=== PATIENT | female | born 1955 | race Caucasian/White ===

== ENCOUNTER → 2022-03-15 | Outpatient (CLI) | payer MEDICARE ==
[2022-03-15 09:49] VITALS: BP 116/75; PULSE 101; RESP 17; TEMP 98.6
--- NOTE | 2022-03-15 10:12 | P.GSHP ---
History of Present Illness H&P Date: 03/15/22 Chief Complaint: right breast invasive ductal cancer Nelida is a 67 year old white female seen in consultation for Dr. Rasmussen . In a biopsy-proven right breast invasive ductal carcinoma. The patient had felt a lump in her breast for approximately a month prior to getting her mammogram. She then had a bilateral mammogram and [id number]. This revealed a lesion in the right breast and ultrasound was performed as well. The findings on the left breast were benign. In the right breast a 1.2 cm spiculated mass was identified. Ultrasound revealed this to be approximately 1.8 cm an ultrasound core biopsy was performed on [id number]. This revealed an invasive ductal car cinoma ER/VT positive HER-2/freddy equivocal. She does not feel any other lumps masses or nodules of concern in either breast. She has not had any surgery on her breast prior to this. Her last mammogram prior to this was approximately 5 years ago. Caffeine: occasional nicotine: none chocolate: none BCP: 20 years, sotpped about 20 years ago Family History: paternal cousin: pancreatic cancer Hormonal History: menarche: 12 [id number] first child born at 15, breast fed: no menopause: 50 hormones: none Surgery: Ganglion cyst left wrist Extra bone growing into clavicle removed when she was 6 Medical History: anxiety IBS Social History: Getting: Negative Alcohol: occasional drugs: Marijuana daily to calm patient - Constitutional Constitutional: Denies chills, Denies fever - EENT Eyes: denies blurred vision, denies pain Ears: deny: decreased hearing, tinnitus Ears, nose, mouth and throat: Denies headache, Denies sore throat - Breasts Breasts: bilateral: as per HPI - Cardiovascular Cardiovascular: Denies chest pain, Denies shortness of breath - Respiratory Respiratory: Denies cough, Denies 7 - Gastrointestinal Comment: IBS Gastrointestinal: Denies abdominal pain, Denies diarrhea, Denies nausea, Denies vomiting - Genitourinary (Female) Genitourinary: Denies dysuria, Denies hematuria - Menstruation Menstruation: Reports postmenopausal - Musculoskeletal Musculoskeletal: Denies myalgias - Integumentary Integumentary: Denies pruritus, Denies rash - Neurological Neurological: Denies numbness, Denies weakness - Psychiatric Psychiatric: Reports anxiety - Endocrine Endocrine: Denies fatigue, Denies weight change - Hematologic/Lymphatic Comment: none - Allergic/Immunologic Allergic/Immunologic: Reports as per HPI Past Medical History Additional Past Medical History / Comment(s): IBS History of Any Multi-Drug Resistant Organisms: None Reported Additional Past Surgical History / Comment(s): CYST REMOVAL L WRIST Past Anesthesia/Blood Transfusion Reactions: Motion Sickness Past Psychological History: No Psychological Hx Reported Smoking Status: Never smoker Past Alcohol Use History: Occasional Past Drug Use History: Marijuana Additional Drug Use History / Comment(s): DAILY MARIJUANA Medications and Allergies Home Medications Medication Instructions Recorded Confirmed Type LORazepam [Ativan] 0.5 mg PO DIRECTED PRN 03/15/22 03/15/22 History Meclizine [Antivert] 25 mg PO DIRECTED PRN 03/15/22 03/15/22 History Allergies Allergy/AdvReac Type Severity Reaction Status Date / Time No Known Allergies Allergy Unverified 03/15/22 09:42 Surgical - Exam Vital Signs Temp Pulse Resp BP Pulse Ox 98.6 F 101 H 17 116/75 98 03/15/22 09:45 03/15/22 09:45 03/15/22 09:45 03/15/22 09:45 03/15/22 09:45 - General moderate distress - Eyes normal ocular movement - Neck trachea midline - Respiratory normal respiratory effort - Cardiovascular Rhythm: regular Heart Sounds: normal: S1, S2 - Abdomen Abdomen: soft, non tender, no guarding, no rigid, no rebound - Integumentary normal turgor - Neurologic no disoriented, no combative - Musculoskeletal normal gait - Psychiatric oriented to time, oriented to person, oriented to place, speech is normal, memory intact Breast Exam: BRA: 36C inspection: Bilateral grade 2 ptosis Palpation: Right breast: Multiple positional exam increased nodularity upper outer quadrant area approximately 1.8 cm in size no other dominant masses or nodules of concern in the breast Right axilla: No adenopathy of concern left breast: Multiple positional exam fibrocystic changes no dominant masses or nodules of concern left axilla: No adenopathy of concern Results Mammogram reviewed in person with Dr. Saucedo Assessment and Plan Assessment: Impression: Stage I invasive ductal carcinoma right breast upper outer quadrant Irritable bowel syndrome Anxiety Plan: Presentation of case at tumor board Probable needle localization lumpectomy, optical plastic tissue transfer, sentinel node biopsy Risk and benefits of the procedures will be discussed with the patient and her as well as treatment options. Cc: Dr. Rasmussen
== END ==
LOC: WWCWWP 09:30
PROVIDERS: ATTEND Surgery
DX: C50.411 Malignant neoplasm of upper-outer quadrant of right female breast (principal); F41.9 Anxiety disorder, unspecified; K58.9 Irritable bowel syndrome, unspecified

== ENCOUNTER → 2022-04-18 | Outpatient (CLI) | payer MEDICARE ==
[2022-04-18 08:52] VITALS: BP 135/74; PULSE 89; RESP 16; TEMP 98.5
--- NOTE | 2022-04-18 09:17 | P.PN ---
Subjective Progress Note Date: 04/18/22 Principal diagnosis: right breast invasiv ductal cancer stage I; 03-27-22 The patient's case was presented at tumor board on [id number]. It was not felt that the patient needed any neoadjuvant treatment prior to surgical intervention. She wishes to have a lumpectomy with sentinel node biopsy done. Her HER2 status was reported as negative at tumor board but this will be confirmed. It was not felt that she was a candidate for genetic testing[place] [id number]; needle localization lumpectomy right breast, possible onco-plastic tissue transfer, sentinel node injection, sentinel node biopsy right side possible right axillary node dissection Preoperative clearance requested from Dr. Rasmussen Addendum entered and electronically signed by Cris Nguyen MD 03/15/22 10:44: As spent approximately 1 hour discussing treatment options with the patient and her . We discussed surgical options including lumpectomy versus mastectomy. We discussed the risks bleeding infection reaction to the anesthetic a possibility of positive margin requiring reexcision. We discussed sentinel node biopsy versus axillary node dissection. We discussed the risks bleeding infection reaction to the anesthetic possibility of positive nodes requiring further resection. We have also discussed possibility of injury to the thoracodorsal and long thoracic nerve with a winged scapula or decreased sensation to the inner arm. History of Present Illness H&P Date: 03/15/22 Chief Complaint: right breast invasive ductal cancer Nelida is a 67 year old white female seen in consultation for Dr. Rasmussen . She has a biopsy-proven right breast invasive ductal carcinoma. The patient had felt a lump in her breast for approximately a month prior to getting her mammogram. [place] [id number]. This revealed a lesion in the right breast and ultrasound was performed as well. The findings on the left breast were benign. In the right breast a 1.2 cm spiculated mass was identified. Ultrasound revealed this to be approximately 1.8 cm an ultrasound core biopsy was performed on [id number]. This revealed an invasive ductal carcinoma ER/NM positive HER-2/freddy equivocal. She does not feel any other lumps masses or nodules of concern in either breast. She has not had any surgery on her breast prior to this. Her last mammogram prior to this was approximately 5 years ago. Tumor board: No neoadjuvant treatment recommended; Surgical date 04-25-22; needle localization lumpectomy, possible radical plastic tissue transfer, sentinel node injection, sentinel node biopsy possible axillary node dissection Her2 freddy: (-) oncotype: 7 Caffeine: occasional nicotine: none chocolate: none BCP: 20 years, sotpped about 20 years ago Family History: paternal cousin: pancreatic cancer Hormonal History: menarche: 12 [id number] first child born at 15, breast fed: no menopause: 50 hormones: none Surgery: Ganglion cyst left wrist Extra bone growing into clavicle removed when she was 6 Medical History: anxiety IBS Social History: Getting: Negative Alcohol: occasional drugs: Marijuana daily to calm patient - Constitutional Constitutional: Denies chills, Denies fever - EENT Eyes: denies blurred vision, denies pain Ears: deny: decreased hearing, tinnitus Ears, nose, mouth and throat: Denies headache, Denies sore throat - Breasts Breasts: bilateral: as per HPI - Cardiovascular Cardiovascular: Denies chest pain, Denies shortness of breath - Respiratory Respiratory: Denies cough - Gastrointestinal Comment: IBS Gastrointestinal: Denies abdominal pain, Denies diarrhea, Denies nausea, Denies vomiting - Genitourinary (Female) Genitourinary: Denies dysuria, Denies hematuria - Menstruation Menstruation: Reports postmenopausal - Musculoskeletal Musculoskeletal: Denies myalgias - Integumentary Integumentary: Denies pruritus, Denies rash - Neurological Neurological: Denies numbness, Denies weakness - Psychiatric Psychiatric: Reports anxiety - Endocrine Endocrine: Denies fatigue, Denies weight change - Hematologic/Lymphatic Comment: none - Allergic/Immunologic Allergic/Immunologic: Reports as per HPI Past Medical History Additional Past Medical History / Comment(s): IBS History of Any Multi-Drug Resistant Organisms: None Reported Additional Past Surgical History / Comment(s): CYST REMOVAL L WRIST Past Anesthesia/Blood Transfusion Reactions: Motion Sickness Past Psychological History: No Psychological Hx Reported Smoking Status: Never smoker Past Alcohol Use History: Occasional Past Drug Use History: Marijuana Additional Drug Use History / Comment(s): DAILY MARIJUANA Medications and Allergies Home Medications Medication Instructions Recorded Confirmed Type LORazepam [Ativan] 0.5 mg PO DIRECTED PRN 03/15/22 03/15/22 History Meclizine [Antivert] 25 mg PO DIRECTED PRN 03/15/22 03/15/22 History Allergies Allergy/AdvReac Type Severity Reaction Status Date / Time No Known Allergies Allergy Unverified 03/15/22 09:42 Objective - Vital Signs Vital signs: Vital Signs Temp 98.5 F 04/18/22 08:47 Pulse 89 04/18/22 08:47 Resp 16 04/18/22 08:47 BP 135/74 04/18/22 08:47 Pulse Ox 99 04/18/22 08:47 FiO2 Intake & Output 04/17/22 04/18/22 04/18/22 18:59 06:59 18:59 Weight 64.864 kg - Constitutional General appearance: Present: cooperative - EENT Eyes: Present: EOMI ENT: Present: hearing grossly normal - Neck Neck: Present: normal ROM - Respiratory Respiratory: bilateral: CTA - Cardiovascular Rhythm: regular Heart sounds: normal: S1, S2 - Gastrointestinal General gastrointestinal: Present: soft - Integumentary Integumentary: Present: normal turgor - Musculoskeletal Musculoskeletal: Present: gait normal - Psychiatric Psychiatric: Present: A&O x's 3, appropriate affect, intact judgment & insight - Additional findings Additional findings: Breast Examination: BRA: 36C Inspection: Grade 2 ptosis Palpation: Right breast: Multiple positional exam increased nodularity upper quadrant approximately 1.8 cm in size no other dominant masses or nodules of concern Right axilla: No adenopathy of concern Left breast: Multi-positional exam fibrocystic changes no dominant masses or nodules of concern Left axilla: No adenopathy of concern Assessment and Plan Assessment: Impression: Stage I invasive ductal carcinoma right breast upper outer quadrant Irritable bowel syndrome Anxiety Plan: Needle localization right breast lumpectomy possible right breast Onoc-plastic tissue transfer [place] node injection right Right sentinel node biopsy, possible right axillary node dissection preop clearance Dr. Rasmussen Risk and benefits of the procedures were discussed with the patient as well as treatment options. The understood risks include but are not limited to bleeding, infection, reaction to the anesthetic, patient wishes to proceed. The risk of the sentinel sentinel node biopsy include but are not limited to bleeding infection reaction to the anesthetic, possible lymphedema, possible num bness to the inner arm, possible injury to the thoracodorsal or long thoracic nerves resulting in wing scapula. The patient and her understand and wish to proceed. CC: Dr. Monse Rasmussen
== END ==
LOC: WWCWWP 08:34
PROVIDERS: ATTEND Surgery
DX: C50.411 Malignant neoplasm of upper-outer quadrant of right female breast (principal); F41.9 Anxiety disorder, unspecified; K58.9 Irritable bowel syndrome, unspecified; Z80.0 Family history of malignant neoplasm of digestive organs

== ENCOUNTER 2022-04-25 07:43 | Day surgery (SDC) | payer MEDICARE ==
[~2022-04-25 07:43] MED LIST: HEPARIN SODIUM,PORCINE/PF 5,000 UNIT/0.5 ML SYRINGE SQ PRN; Pre Op ABX Message 1 EACH MISC MISCELLANE ONE
[2022-04-25] MEDS ORDERED: HYDROmorphone 0.5 MG/0.5 ML SYRINGE IVP PRN (07:58)
[2022-04-25] MEDS ORDERED: LIDOCAINE 1% (10MG/ML) FOR IV START INTRADERMA PRN (07:58)
[2022-04-25] MEDS ORDERED: ONDANSETRON 4 MG/2 ML VIAL IVP ONE (07:58)
[2022-04-25] MEDS ORDERED: LACTATED RINGERS 1,000 ML IV SCH (07:58)
[2022-04-25] MEDS ORDERED: DEXAMETHASONE SOD PHOSPHATE 4 MG/ML 1 ML VIAL IV ONE (07:58)
[2022-04-25] MEDS ORDERED: ALPRAZolam 0.25 MG TAB ONE (09:07)
[2022-04-25] MEDS ORDERED: ALPRAZolam 0.25 MG TAB PO ONE (09:24)
[2022-04-25] MEDS ORDERED: LIDOCAINE 1% INJ 10MG/ML (5 ML VIAL-PF) SQ ONE (09:54)
--- NOTE | 2022-04-25 10:36 | NM ---
EXAMINATION TYPE: NM sentinel node injection DATE OF EXAM: 04/25/2022 COMPARISON: 03/01/2022 HISTORY: 67-year-old female C5 0.411, referred for needle localization for excision of biopsy-proven right breast cancer. TECHNIQUE AND FINDINGS: The procedure of sentinel lymph node injection was explained to the patient. The benefits, alternatives, and risks were discussed. An informed consent was then obtained. Overlying skin is cleaned with sterile alcohol. Following this, 493 uCi Tc99m Tilmanocept was inject ed in the upper outer aspect of the right nipple intradermally. The patient tolerated the procedure well without any immediate complication. The patient was kept in the radiology department for short stay after the procedure and then taken to surgery for surgical p rocedure what is presumed intraoperative gamma probe will be used for sentinel lymph node detection. IMPRESSION: Right breast radiotracer injection for sentinel node localization as above.
--- NOTE | 2022-04-25 11:37 | P.NAPBC ---
NAPBC Queries - NAPBC Queries Was patient's case review presented at [facility] tumor board? If no, comment.: Yes Was patient's pathology reviewed at [facility]? If no, comment.: Yes Was breast conservation surgery offered? If no, comment.: Yes Was sentinel node biopsy offered? If no, comment.: Yes Was diagnosis confirmed by percutaneous core biopsy? If no, comment.: Yes Is patient mastectomy patient?: No Was a preop referral to reconstructive surgeon offered?: No Clinical Stage: stage I right breast invasive ductal cancer; [id number]+Pr+Her2-
[2022-04-25] MEDS ORDERED: SUCCINYLCHOLINE CHLORIDE 200 MG/10 ML VIAL IV ONE (12:05)
[2022-04-25] MEDS ORDERED: LIDOCAINE 2% INJ 20 MG/ML (2 ML VIAL) ONE (12:05)
[2022-04-25] MEDS ORDERED: MIDAZOLAM 2 MG/2 ML VIAL ONE (12:05)
[2022-04-25] MEDS ORDERED: fentaNYL (PF) 50 MCG/ML 2 ML AMP ONE (12:05)
[2022-04-25] MEDS ORDERED: LIDOCAINE 4% LTA KIT (4 ML) TOPICAL ONE (12:05)
[2022-04-25] MEDS ORDERED: PROPOFOL 10 MG/ML 20 ML VIAL IV ONE (12:05)
[2022-04-25] MEDS ORDERED: SODIUM CHLORIDE 0.9% 50 ML with ceFAZolin 2 GM IV ONE ×2 (12:10)
--- NOTE | 2022-04-25 13:30 | P.OP ---
Date of Procedure: 04/25/22 Preoperative Diagnosis: Right breast invasive ductal carcinoma stage I Postoperative Diagnosis: Same Procedure(s) Performed: Right sentinel node biopsy, right needle localization lumpectomy, onco-plastic tissue transfer 35 cm Anesthesia: REMEDIOS Surgeon: Cris Nguyen Estimated Blood Loss (ml): 10 IV fluids (ml): 600 Pathology: other ([place] lymph node, breast tissue) Condition: stable Disposition: same day Indications for Procedure: Biopsy-proven right breast invasive ductal carcinoma Operative Findings: Palpable mass right breast Description of Procedure: The patient was first taken to the radiology suite where needle localization of the area of concern was performed. Injection of radiotracer was placed in the periareolar area. The patient was then brought to the operative suite. Following induction of anesthesia the Maru counter was used to interrogate the axilla. The area of radioactivity in the axilla was identified. The patient was then prepped and draped in the right breast and axilla in a sterile fashion. The axilla was approached initially. Using the neoprobe the area of greatest radioactivity was identified. An incision was made and carried down to the radioactive lymph node. Wide excision was performed. A 10 second count on the lymph node was 9000 and 141. The patient had a second area of increased radioactivity in the 10 second count was 146. A background count of 10 seconds was 34. After assured that hemostasis was attained the deep tissues were closed using 3-0 Vicryl suture. The skin was closed using 4-0 Monocryl. The area in the breast was then approached. An incision was made and carried down to the needle. The dissection was immediately under the skin. It was carried circumferentially around the area of the needle onto the pectoralis muscle. The specimen cavity was 5 x 4 cm, superior pillar of 3 x 2 cm was created and inferior pillar 3 x 5 cm was created. Total tissue transfer was 35 cm. The specimen was removed and painted for orientation. Radiograph revealed the area of concern had been removed. The pillars were brought together using 3-0 Vicryl suture after the cavity had been well examined for hemostasis. Titan ium clips were placed in the cavity. This was closed using 4-0 Monocryl. 10 mL of 1% lidocaine were injected into the incision. The patient tolerated the procedure in stable condition. All instrument and sponge counts were correct at the end of the case.
[2022-04-25 13:50] VITALS: TEMP 96.9
[2022-04-25 14:25] VITALS: RESP 16
[2022-04-25 14:51] VITALS: BP 164/63; PULSE 70
== END 2022-04-25 15:22 | disposition home or self-care (01) ==
LOC: OR 07:43
PROVIDERS: ATTEND Surgery
DX: C50.911 Malignant neoplasm of unspecified site of right female breast (principal); F41.9 Anxiety disorder, unspecified; Z87.19 Personal history of other diseases of the digestive system; Z79.1 Long term (current) use of non-steroidal anti-inflammatories (NSAID); Z79.899 Other long term (current) drug therapy; F12.20 Cannabis dependence, uncomplicated; Z80.42 Family history of malignant neoplasm of prostate; Z78.0 Asymptomatic menopausal state; Z79.52 Long term (current) use of systemic steroids; F10.20 Alcohol dependence, uncomplicated
CPT/HCPCS: 97110; 97535; 97161; 76098; 19281; 38792; 38525; 14001; C1819; A9520; J2250; J0330; J1100; J0690; J2405; J2001 ×2; J3010; J2704; J1790; J1644; 88307; 88341; 88342

== ENCOUNTER → 2022-05-03 | Outpatient (CLI) | payer MEDICARE ==
[2022-05-03 10:21] VITALS: BP 147/69; PULSE 118; RESP 16; TEMP 98.1
--- NOTE | 2022-05-03 10:24 | P.PN ---
Progress Note - Text Progress Note Date: 05/03/22 Nelida is a 67 year old white female statua post right breast lumpectomy and SNB on 04-25-22. Her pathology revealed the margins to be negative, and eight nodes to be negative. Physical examination: Incision rest and axilla clean and dry Lungs: Clear Heart: Regular rate and rhythm Impression: Patient status post right breast lumpectomy and sentinel node biopsy with negative margins and node negative doing well Plan: Follow-up medical oncology Follow-up radiation oncology Follow-up care in 4 months CC: Dr. Rasmussen
== END ==
LOC: WWCWWP 10:07
PROVIDERS: ATTEND Surgery
DX: Z85.3 Personal history of malignant neoplasm of breast (principal)

== ENCOUNTER → 2022-09-05 | Outpatient (CLI) | payer MEDICARE ==
[2022-09-05 12:41] VITALS: BP 146/75; PULSE 98; RESP 18; TEMP 97.6
--- NOTE | 2022-09-05 12:57 | P.PN ---
Subjective Progress Note Date: 09/05/22 Principal diagnosis: stage IA right breast invasive ductal cancer, 03-15-2022 History of Present Illness Chief Complaint: right breast invasive ductal cancer Nelida is a 67 year old white female seen in consultation for Dr. Rasmussen . She has a biopsy-proven right breast invasive ductal carcinoma. The patient had felt a lump in her breast for approximately a month prior to getting her mammogram. [place] [id number]. This revealed a lesion in the right breast and ultrasound was performed as well. The findings on the left breast were benign. In the right breast a 1.2 cm spiculated mass was identified. Ultrasound revealed this to be approximately 1.8 cm an ultrasound core biopsy was performed on [id number]. This revealed an invasive ductal carcinoma ER/OK positive HER-2/freddy equivocal. She does not feel any other lumps masses or nodules of concern in either breast. She has not had any surgery on her breast prior to this. Her last mammogram prior to this was approximately 5 years ago. Tumor board: No neoadjuvant treatment recommended; Surgical date 04-25-22; needle localization lumpectomy, possible onco-plastic tissue transfer, sentinel node injection, sentinel node biopsy possible axillary node dissection Her2 freddy: (-) oncotype: 7 She is status post on 04-25-22 right breast lumpectomy, all margins (-) and 8 nodes removed all (-). Note Radiation oncology 08-02-22 reviewed She completed radiation therapy 07-03-22 note medical oncology 09-02-22 reviewed; patient recommended to take hormone therapy, she is going to decide At this time she is not complaining of any new lumps masses or notches of concern in either breast. Caffeine: occasional nicotine: none chocolate: none BCP: 20 years, sotpped about 20 years ago Family History: paternal cousin: pancreatic cancer Hormonal History: menarche: 12 [id number] first child born at 15, breast fed: no menopause: 50 hormones: none Surgery: Ganglion cyst left wrist Extra bone growing into clavicle removed when she was 6 Medical History: anxiety IBS Social History: Getting: Negative Alcohol: occasional drugs: Marijuana daily to calm patient - Constitutional Constitutional: Denies chills, Denies fever - EENT Eyes: denies blurred vision, denies pain Ears: deny: decreased hearing, tinnitus Ears, nose, mouth and throat: Denies headache, Denies sore throat - Breasts Breasts: bilateral: as per HPI - Cardiovascular Cardiovascular: Denies chest pain, Denies shortness of breath - Respiratory Respiratory: Denies cough - Gastrointestinal Comment: IBS Gastrointestinal: Denies abdominal pain, Denies diarrhea, Denies nausea, Denies vomiting - Genitourinary (Female) Genitourinary: Denies dysuria, Denies hematuria - Menstruation Menstruation: Reports postmenopausal - Musculoskeletal Musculoskeletal: Denies myalgias - Integumentary Integumentary: Denies pruritus, Denies rash - Neurological Neurological: Denies numbness, Denies weakness - Psychiatric Psychiatric: Reports anxiety - Endocrine Endocrine: Denies fatigue, Denies weight change - Hematologic/Lymphatic Comment: none - Allergic/Immunologic Allergic/Immunologic: Reports as per HPI Past Medical History Additional Past Medical History / Comment(s): IBS History of Any Multi-Drug Resistant Organisms: None Reported Additional Past Surgical History / Comment(s): CYST REMOVAL L WRIST Past Anesthesia/Blood Transfusion Reactions: Motion Sickness Past Psychological History: No Psychological Hx Reported Smoking Status: Never smoker Past Alcohol Use History: Occasional Past Drug Use History: Marijuana Additional Drug Use History / Comment(s): DAILY MARIJUANA Medications and Allergies Home Medications Medication Instructions Recorded Confirmed Type LORazepam [Ativan] 0.5 mg PO DIRECTED PRN 03/15/22 03/15/22 History Meclizine [Antivert] 25 mg PO DIRECTED PRN 03/15/22 03/15/22 History Allergies Allergy/AdvReac Type Severity Reaction Status Date / Time No Known Allergies Allergy Unverified 03/15/22 09:42 Objective - Vital Signs Vital signs: Vital Signs Temp 97.6 F 09/05/22 12:39 Pulse 98 09/05/22 12:39 Resp 18 09/05/22 12:39 BP 146/75 09/05/22 12:39 Pulse Ox 98 09/05/22 12:39 FiO2 Intake & Output 09/04/22 09/05/22 09/05/22 18:59 06:59 18:59 Weight 63.957 kg - Constitutional General appearance: Present: cooperative - EENT ENT: Present: hearing grossly normal - Neck Neck: Present: normal ROM - Respiratory Respiratory: bilateral: CTA - Cardiovascular Rhythm: regular Heart sounds: normal: S1, S2 - Gastrointestinal General gastrointestinal: Present: soft - Integumentary Integumentary: Present: normal turgor - Musculoskeletal Musculoskeletal: Present: gait normal - Psychiatric Psychiatric: Present: A&O x's 3, appropriate affect, intact judgment & insight - Additional findings Additional findings: Breast Examination: BRA: 36C Inspection: Grade 2 ptosis Palpation: Right breast: Multiple positional exam increased nodularity upper quadrant approximately 1.8 cm in size no other dominant masses or nodules of concern Right axilla: No adenopathy of concern Left breast: Multi-positional exam fibrocystic changes no dominant masses or nodules of concern Left axilla: No adenopathy of concern Assessment and Plan Assessment: Impression: anxiety IBS Right breast invasive ductal carcinoma/status post lumpectomy Right breast mammogram for February Plan: Follow up in 4 months Continue follow-up with radiation oncology Follow-up medical oncology bilateral mammogram in February Cc: Dr. Monse Rasmussen
== END ==
LOC: WWCWWP 12:25
PROVIDERS: ATTEND Surgery
DX: C50.911 Malignant neoplasm of unspecified site of right female breast (principal); F41.9 Anxiety disorder, unspecified; K58.9 Irritable bowel syndrome, unspecified; Z17.0 Estrogen receptor positive status [ER+]; Z92.3 Personal history of irradiation

== ENCOUNTER → 2023-02-21 | Outpatient (CLI) | payer MEDICARE ==
--- NOTE | 2023-02-21 13:11 | MM ---
Reason for Exam: Follow-up at short interval from prior study. Last screening mammogram was performed 12 month(s) ago. Patient History: Menarche at age 12. First Full-Term at age 15. Postmenopausal. Breast cancer, right, age 67. 04/25/2022, Lumpectomy on the Right side. 04/25/2022, Malignant MG pre op needle loc RT on the right side. Prior Study Comparison: 02/20/2022 Bilateral Diagnostic Mammogram, Unknown. Tissue Density: The breast tissue is heterogeneously dense. This may lower the sensitivity of mammography. Findings: Analyzed By CAD. No new suspicious mass within either breast. Postsurgical and posttreatment changes of the right breast with surgical clips identified and skin thickening. Benign calcifications within both breasts. No suspicious group of calcifications within either breast. Overall Assessment: Benign, BI-RAD 2 Management: Diagnostic Mammogram of both breasts in 1 year. A clinical breast exam by your physician is recommended on an annual basis and results should be correlated with mammographic findings. This exam should not preclude additional follow-up of suspicious palpable abnormalities. Results were given to the patient verbally at the time of exam. Electronically signed and approved by: Jorge De D.O.
--- NOTE | 2023-02-21 14:31 | P.PN ---
Subjective Progress Note Date: 02/21/23 Principal diagnosis: right breast invasive ductal cancer stage IA stage IA right breast invasive ductal cancer, 03-15-2022 History of Present Illness Chief Complaint: right breast invasive ductal cancer Nelida is a 67 year old white female seen in consultation for Dr. Rasmussen . She has a biopsy-proven right breast invasive ductal carcinoma. The patient had felt a lump in her breast for approximately a month prior to getting her ma mmogram. [place] [address]. This revealed a lesion in the right breast and ultrasound was performed as well. The findings on the left breast were benign. In the right breast a 1.2 cm spiculated mass was identified. Ultrasound revealed this to be approximately 1.8 cm an ultrasound core biopsy was performed on [id number]. This revealed an invasive ductal carcinoma ER/KS positive HER-2/freddy equivocal. She does not feel any other lumps masses or nodules of concern in either breast. She has not had any surgery on her breast prior to this. Her last mammogram prior to this was approximately 5 years ago. Tumor board: No neoadjuvant treatment recommended; Surgical date 04-25-22; needle localization lumpectomy, possible onco-plastic tissue transfer, sentinel node in jection, sentinel node biopsy possible axillary node dissection Her2 freddy: (-) oncotype: 7 She is status post on 04-25-22 right breast lumpectomy, all margins (-) and 8 nodes removed all (-). Note Radiation oncology 08-02-22 reviewed She completed radiation therapy 07-03-22 note medical oncology 09-02-22 reviewed; patient recommended to take hormone therapy, she is going to decide At this time she is not complaining of any new lumps masses or nodules of concern in either breast. 02-21-23 bilateral mammogram 02-21-23 BIRAD 2 She is status post right breast lumpectomy on all margins were negative, and 8 lymph nodes removed all negative Tumor size was 1.4 cm, ER/KS positive HER-2/freddy equivocal Completed radiation therapy She is not complaining of any new lumps past or nodules of concern in either breast Caffeine: occasional nicotine: none chocolate: none BCP: 20 years, sotpped about 20 years ago Family History: paternal cousin: pancreatic cancer Hormonal History: menarche: 12 [id number] first child born at 15, breast fed: no menopause: 50 hormones: none Surgery: Ganglion cyst left wrist Extra bone growing into clavicle removed when she was 6 Right breast lumpectomy and sentinel node biopsy Medical History: anxiety IBS Social History: Getting: Negative Alcohol: occasional drugs: Marijuana daily to calm patient - Constitutional Constitutional: Denies chills, Denies fever - EENT Eyes: denies blurred vision, denies pain Ears: deny: decreased hearing, tinnitus Ears, nose, mouth and throat: Denies headache, Denies sore throat - Breasts Breasts: bilateral: as per HPI - Cardiovascular Cardiovascular: Denies chest pain, Denies shortness of breath - Respiratory Respiratory: Denies cough - Gastrointestinal Comment: IBS Gastrointestinal: Denies abdominal pain, Denies diarrhea, Denies nausea, Denies vomiting - Genitourinary (Female) Genitourinary: Denies dysuria, Denies hematuria - Menstruation Menstruation: Reports postmenopausal - Musculoskeletal Musculoskeletal: Denies myalgias - Integumentary Integumentary: Denies pruritus, Denies rash - Neurological Neurological: Denies numbness, Denies weakness - Psychiatric Psychiatric: Reports anxiety - Endocrine Endocrine: Denies fatigue, Denies weight change - Hematologic/Lymphatic Comment: none - Allergic/Immunologic Allergic/Immunologic: Reports as per HPI Past Medical History Additional Past Medical History / Comment(s): IBS History of Any Multi-Drug Resistant Organisms: None Reported Additional Past Surgical History / Comment(s): CYST REMOVAL L WRIST Past Anesthesia/Blood Transfusion Reactions: Motion Sickness Past Psychological History: No Psychological Hx Reported Smoking Status: Never smoker Past Alcohol Use History: Occasional Past Drug Use History: Marijuana Additional Drug Use History / Comment(s): DAILY MARIJUANA Medications and Allergies Home Medications Medication Instructions Recorded Confirmed Type LORazepam [Ativan] 0.5 mg PO DIRECTED PRN 03/15/22 03/15/22 History Meclizine [Antivert] 25 mg PO DIRECTED PRN 03/15/22 03/15/22 History Allergies Allergy/AdvReac Type Severity Reaction Status Date / Time No Known Allergies Allergy Unverified 03/15/22 09:42 Objective - Constitutional General appearance: Present: cooperative - EENT Eyes: Present: EOMI ENT: Present: hearing grossly normal - Neck Neck: Present: normal ROM - Respiratory Respiratory: bilateral: CTA - Cardiovascular Rhythm: regular Heart sounds: normal: S1, S2 - Integumentary Integumentary: Present: normal turgor - Musculoskeletal Musculoskeletal: Present: gait normal - Psychiatric Psychiatric: Present: A&O x's 3, appropriate affect, intact judgment & insight - Additional findings Additional findings: Breast Examination: BRA: 36C Inspection: Grade 2 ptosis Palpation: Right breast: Multiple positional examination scar tissue and radiation changes upper outer quadrant area no other dominant masses or nodules of concern Right axilla: No adenopathy of concern Left breast: Multi-positional exam fibrocystic changes no dominant masses or nodules of concern Left axilla: No adenopathy of concern Assessment and Plan Assessment: Impression: anxiety IBS Right breast invasive ductal carcinoma/status post lumpectomy Right breast mammogram for 02-21-23 BIRAD 2 Plan: Follow up in 4 months Continue follow-up with radiation oncology Follow-up medical oncology bilateral mammogram in February,02-21-23 BIRAD 2; repeat one year Cc: Dr. Monse Rasmussen
== END | disposition home or self-care (01) ==
LOC: RADMAMWWP 12:38
PROVIDERS: ATTEND Surgery
DX: R92.333 Mammographic heterogeneous density, bilateral breasts (principal); Z85.3 Personal history of malignant neoplasm of breast; Z78.0 Asymptomatic menopausal state
CPT/HCPCS: 77066; G0279; 77062

== ENCOUNTER → 2023-02-21 | Outpatient (CLI) | payer MEDICARE ==
[2023-02-21 14:04] VITALS: BP 147/76; PULSE 100; RESP 18; TEMP 97.8
== END ==
LOC: WWCWWP 12:40
PROVIDERS: ATTEND Surgery
DX: Z53.9 Procedure and treatment not carried out, unspecified reason (principal)

== ENCOUNTER → 2023-07-18 | Outpatient (CLI) | payer MEDICARE ==
--- NOTE | 2023-07-18 14:52 | P.PN ---
Subjective Progress Note Date: 07/18/23 02/21/23 Principal diagnosis: right breast invasive ductal cancer stage IA [id number]- stage IA right breast invasive ductal cancer, 03-15-2022 History of Present Illness Chief Complaint: right breast invasive ductal cancer Nelida is a 67 year old white female seen in consultation for Dr. Rasmussen . She has a biopsy-proven right breast invasive ductal carcinoma. The patient had felt a lump in her breast for approximately a month prior to getting her mammogram. She then had a bilateral mammogram on . This revealed a lesion in the right breast and ultrasound was performed as well. The findings on the left breast were benign. In the right breast a 1.2 cm spiculated mass was identified. Ultrasound revealed this to be approximately 1.8 cm an ultrasound core biopsy was performed on [id number]. This revealed an invasive ductal carcinoma ER/MO positive HER-2/freddy equivocal. She does not feel any other lumps masses or nodules of concern in either breast. She has not had any surgery on her breast prior to this. Her last mammogram prior to this was approximately 5 years ago. Tumor board: No neoadjuvant treatment recommended; Surgical date 04-25-22; needle localization lumpectomy, possible onco-plastic tissue transfer, sentinel node injection, sentinel node biopsy possible axillary node dissection Her2 freddy: (-) oncotype: 7 She is status post on 04-25-22 right breast lumpectomy, all margins (-) and 8 nodes removed all (-). Note Radiation oncology 08-02-22 reviewed She completed radiation therapy 07-03-22 note medical oncology 09-02-22 reviewed; patient recommended to take hormone therapy, she is going to decide At this time she is not complaining of any new lumps masses or nodules of concern in either breast. 02-21-23 bilateral mammogram 02-21-23 BIRAD 2 She is status post right breast lumpectomy on all margins were negative, and 8 lymph nodes removed all negative Tumor size was 1.4 cm, ER/MO positive HER-2/freddy equivocal Completed radiation therapy She is not complaining of any new lumps past or nodules of concern in either breast 07-18-23 Status post on 04-25-22 right breast lumpectomy all margins (-), and 8 nodes removed all (-). She completed radiation therapy 07-03-22 oncotype 7 note medical oncology 09-02-22 reviewed; patient recommended to take hormone therapy, she is going to decide she chose not to take this At this time she is not complaining of any new lumps masses or nodules of concern in either breast. She did have some swelling of her right arm and was seen by PT and that improved bilatearal mammogram 02-21-23 BIRAD 2 note radiation oncology 03-05-23 reviewed Caffeine: occasional nicotine: none chocolate: none BCP: 20 years, sotpped about 20 years ago Family History: paternal cousin: pancreatic cancer Hormonal History: menarche: 12 [id number] first child born at 15, breast fed: no menopause: 50 hormones: none Surgery: Ganglion cyst left wrist Extra bone growing into clavicle removed when she was 6 Right breast lumpectomy and sentinel node biopsy Medical History: anxiety IBS Social History: Getting: Negative Alcohol: occasional drugs: Marijuana daily to calm patient - Constitutional Constitutional: Denies chills, Denies fever - EENT Eyes: denies blurred vision, denies pain Ears: deny: decreased hearing, tinnitus Ears, nose, mouth and throat: Denies headache, Denies sore throat - Breasts Breasts: bilateral: as per HPI - Cardiovascular Cardiovascular: Denies chest pain, Denies shortness of breath - Respiratory Respiratory: Denies cough - Gastrointestinal Comment: IBS Gastrointestinal: Denies abdominal pain, Denies diarrhea, Denies nausea, Denies vomiting - Genitourinary (Female) Genitourinary: Denies dysuria, Denies hematuria - Menstruation Menstruation: Reports postmenopausal - Musculoskeletal Musculoskeletal: Denies myalgias - Integumentary Integumentary: Denies pruritus, Denies rash - Neurological Neurological: Denies numbness, Denies weakness - Psychiatric Psychiatric: Reports anxiety - Endocrine Endocrine: Denies fatigue, Denies weight change - Hematologic/Lymphatic Comment: none - Allergic/Immunologic Allergic/Immunologic: Reports as per HPI Past Medical History Additional Past Medical History / Comment(s): IBS History of Any Multi-Drug Resistant Organisms: None Reported Additional Past Surgical History / Comment(s): CYST REMOVAL L WRIST Past Anesthesia/Blood Transfusion Reactions: Motion Sickness Past Psychological History: No Psychological Hx Reported Smoking Status: Never smoker Past Alcohol Use History: Occasional Past Drug Use History: Marijuana Additional Drug Use History / Comment(s): DAILY MARIJUANA Medications and Allergies Home Medications Medication Instructions Recorded Confirmed Type LORazepam [Ativan] 0.5 mg PO DIRECTED PRN 03/15/22 03/15/22 History Meclizine [Antivert] 25 mg PO DIRECTED PRN 03/15/22 03/15/22 History Allergies Allergy/AdvReac Type Severity Reaction Status Date / Time No Known Allergies Allergy Unverified 03/15/22 09:42 Objective - Constitutional General appearance: Present: cooperative - EENT Eyes: Present: EOMI ENT: Present: hearing grossly normal - Neck Neck: Present: normal ROM - Respiratory Respiratory: bilateral: CTA - Cardiovascular Rhythm: regular Heart sounds: normal: S1, S2 - Gastrointestinal General gastrointestinal: Present: soft - Integumentary Integumentary: Present: normal turgor - Musculoskeletal Musculoskeletal: Present: gait normal - Psychiatric Psychiatric: Present: A&O x's 3, appropriate affect, intact judgment & insight - Additional findings Additional findings: Breast Examination: BRA: 36C Inspection: Grade 2 ptosis Palpation: Right breast: Multiple positional examination scar tissue and radiation changes upper outer quadrant area no other dominant masses or nodules of concern; a fullness near the upper outer quadrant at prior lumpectomy site is more prominent on today's examination Right axilla: No adenopathy of concern Left breast: Multi-positional exam fibrocystic changes no dominant masses or nodules of concern Left axilla: No adenopathy of concern Assessment and Plan Assessment: Impression: anxiety IBS Right breast invasive ductal carcinoma/status post lumpectomy Right breast mammogram for 02-21-23 BIRAD 2 Plan: Follow up next week for biopsy of lesion in the right breast Continue follow-up with radiation oncology She decided against the hormone therapy and is not following with medical oncology bilateral mammogram in February,02-21-23 BIRAD 2; repeat one year February 2024 repeat mammogram Cc: Dr. Monse Rasmussen
[2023-07-18 15:34] VITALS: BP 172/67; PULSE 100; RESP 17; TEMP 98.3
== END ==
LOC: WWCWWP 14:13
PROVIDERS: ATTEND Surgery
DX: C50.911 Malignant neoplasm of unspecified site of right female breast (principal); F41.9 Anxiety disorder, unspecified; K58.9 Irritable bowel syndrome, unspecified; Z17.0 Estrogen receptor positive status [ER+]; Z92.3 Personal history of irradiation; Z98.890 Other specified postprocedural states

== ENCOUNTER → 2023-07-23 | Outpatient (CLI) | payer MEDICARE ==
--- NOTE | 2023-07-23 12:33 | P.PCN ---
Date of Procedure: 07/23/23 Preoperative Diagnosis: Nodularity near lumpectomy site right breast Postoperative Diagnosis: Same Procedure(s) Performed: core biopsy of the lesion in the UOQ left breast Anesthesia: local Surgeon: Cris Nguyen Pathology: other (bresat tissue) Condition: stable Disposition: same day Indications for Procedure: Increased nodularity upper outer quadrant right breast near prior lumpectomy site/rule out fat necrosis/postoperative changes Description of Procedure: Following informed consent the area of concern was prepped using chlorhexidine. 1% lidocaine was used to anesthetize the area of concern. A 15 blade needle was needed used to make a krystina in the skin. A 18-gauge Bard spring-loaded biopsy needle was used to obtain core biopsy of the area. 3 specimens were obtained. Specimens are sent to pathology. The patient tolerated the procedure in stable condition and will follow-up in 1 week.
[2023-07-23 13:52] VITALS: BP 147/70; PULSE 84; RESP 17; TEMP 98.1
== END ==
LOC: WWCWWP 11:43
PROVIDERS: ATTEND Surgery
DX: N63.11 Unspecified lump in the right breast, upper outer quadrant (principal); F12.90 Cannabis use, unspecified, uncomplicated
CPT/HCPCS: 88305

== ENCOUNTER → 2024-02-24 | Outpatient (CLI) | payer MEDICARE ==
--- NOTE | 2024-02-24 10:15 | USB ---
Reason for Exam: Additional evaluation requested from prior study. Patient History: Menarche at age 12. First Full-Term at age 15. Postmenopausal. Breast cancer, right, age 67. Previous chest radiation therapy at age 67. 04/25/2022, Lumpectomy on the Right side. 04/25/2022, Malignant MG pre op needle loc RT on the right side. Technique: Method: Targeted. Prior Study Comparison: 02/20/2022 Bilateral Diagnostic Mammogram, Unknown. 02/21/2023 Bilateral MG 3D diag mammo w/cad [facility], [facility]. Findings: The lower outer quadrant of the left breast, the axilla of the left breast and the retroareolar of the left breast were scanned. A complete US of all four quadrants of the breast and retro-areolar region were reviewed. No solid or cystic masses are identified.. Management will be based on the mammogram which appears more suspicious. Overall Assessment: Suspicious, BI-RAD 4 Management: Stereotactic Core Biopsy of the left breast. A clinical breast exam by your physician is recommended on an annual basis and results should be correlated with mammographic findings. This exam should not preclude additional follow-up of suspicious palpable abnormalities. Results were given to the patient verbally at the time of exam. [facility], , 02/24/2024 10:12 AM. Electronically signed and approved by: aZfar Saucedo D.O. Radiologis
--- NOTE | 2024-02-24 10:17 | MM ---
Reason for Exam: Follow-up at short interval from prior study. Last screening mammogram was performed 12 month(s) ago. Patient History: Menarche at age 12. First Full-Term at age 15. Postmenopausal. Breast cancer, right, age 67. Previous chest radiation therapy at age 67. 04/25/2022, Lumpectomy on the Right side. 04/25/2022, Malignant MG pre op needle loc RT on the right side. Prior Study Comparison: 02/20/2022 Bilateral Diagnostic Mammogram, Unknown. 02/21/2023 Bilateral MG 3D diag mammo w/cad [facility], [facility]. Tissue Density: There are scattered areas of fibroglandular density. Findings: Analyzed By CAD. The pattern is symmetrical. There is a new lobular density in the outer left mid breast not identified previously. This appears persistent on impression cranial caudal view. This is not clearly evident on the mediolateral oblique or mediolateral views. Ultrasound is recommended for additional evaluation. Right breast:No suspicious groups of microcalcifications, spiculated or lobular masses, architectural distortion or other secondary signs of malignancy are mammographically apparent. Overall Assessment: Incomplete: need additional imaging evaluation, BI-RAD 0 Management: Diagnostic Breast Ultrasound of the left breast. A negative mammogram report should not preclude additional follow up of suspicious palpable abnormalities. Patient should continue monthly self breast exam. A clinical breast exam by your physician is recommended on an annual basis and results should be correlated with mammographic findings. Note on Ginny scores and lifetime risk: 1. A Ginny score greater than 3% is considered moderate risk. If this is the case, consider specialist referral to assess eligibility for a risk reducing agent. 2. If overall lifetime risk for the development of breast cancer is 20% or higher, the patient may qualify for future screening with alternating mammogram and breast MRI. [facility], , 02/24/2024 10:14 AM. Electronically signed and approved by: Zafar Saucedo D.O. Radiologis
== END | disposition home or self-care (01) ==
LOC: RADMAMWWP 08:43
PROVIDERS: ATTEND Surgery
DX: R92.8 Other abnormal and inconclusive findings on diagnostic imaging of breast (principal); Z85.3 Personal history of malignant neoplasm of breast; Z78.0 Asymptomatic menopausal state
CPT/HCPCS: 77066; 76642; G0279; 77062

== ENCOUNTER → 2024-02-26 | Outpatient (CLI) | payer MEDICARE ==
[2024-02-26 07:22] VITALS: BP 106/73; PULSE 128; RESP 16; TEMP 98.2
--- NOTE | 2024-02-26 07:49 | P.PN ---
Subjective Progress Note Date: 02/26/24 Principal diagnosis: right breast invasive ductal cancer stage IA [id number]- stage IA right breast invasive ductal cancer, 03-15-2022 left breast abnormal mammogram History of Present Illness Chief Complaint: right breast invasive ductal cancer/ abnornmal left breast mammogram Nelida is a 69 year old white female seen in consultation for Dr. Rasmussen in 2021. . She had a biopsy-proven right breast invasive ductal carcinoma. The patient had felt a lump in her breast for approximately a month prior to getting her mammogram. She then had a bilateral mammogram on . This revealed a lesion in the right breast and ultrasound was performed as well. The findings on the left breast were benign. In the right breast a 1.2 cm spiculated mass was identified. Ultrasound revealed this to be approximately 1.8 cm an ultrasound core biopsy was performed on [id number]. This revealed an invasive ductal carcinoma ER/LA positive HER-2/freddy equivocal. She does not feel any other lumps masses or nodules of concern in either breast. She had not had any surgery on her breast prior to this. Her last mammogram prior to this was approximately 5 years ago. Tumor board: No neoadjuvant treatment recommended; Surgical date 04-25-22; needle localization lumpectomy, possible onco-plastic tissue transfer, sentinel node injection, sentinel node biopsy possible axillary node dissection Her2 freddy: (-) oncotype: 7 Status post on 04-25-22 right breast lumpectomy all margins (-), and 8 nodes removed all (-). She completed radiation therapy 07-03-22 oncotype 7 note medical oncology 09-02-22 reviewed; patient recommended to take hormone therapy, she is going to decide she chose not to take this At this time she is not complaining of any new lumps masses or nodules of concern in either breast. She did have some swelling of her right arm and was seen by PT and that improved Patient underwent a right breast core biopsy for palpable fullness in the right breast on 07-23-2023. Pathology revealed nodular fat necrosis with inflamed scar. The patient had a repeat bilateral mammogram in February 24, 2024. bilatearal mammogram 02-24-24 and left breast ultrasound, lesion in the left breast no lesions in the right breast She does not feel any new lumps masses or nodules of concern in either breast. Caffeine: occasional nicotine: none chocolate: none BCP: 20 years, sotpped about 20 years ago Family History: paternal cousin: pancreatic cancer Hormonal History: menarche: 12 [id number] first child born at 15, breast fed: no menopause: 50 hormones: none Surgery: Ganglion cyst left wrist Extra bone growing into clavicle removed when she was 6 Right breast lumpectomy and sentinel node biopsy Medical History: anxiety IBS weight loss 20 pounds under stress Social History: Getting: Negative Alcohol: occasional drugs: Marijuana daily to calm patient - Constitutional Constitutional: Denies chills, Denies fever - EENT Eyes: denies blurred vision, denies pain Ears: deny: decreased hearing, tinnitus Ears, nose, mouth and throat: Denies headache, Denies sore throat - Breasts Breasts: bilateral: as per HPI - Cardiovascular Cardiovascular: Denies chest pain, Denies shortness of breath - Respiratory Respiratory: Denies cough - Gastrointestinal Comment: IBS Gastrointestinal: Denies abdominal pain, Denies diarrhea, Denies nausea, Denies vomiting - Genitourinary (Female) Genitourinary: Denies dysuria, Denies hematuria - Menstruation Menstruation: Reports postmenopausal - Musculoskeletal Musculoskeletal: Denies myalgias - Integumentary Integumentary: Denies pruritus, Denies rash - Neurological Neurological: Denies numbness, Denies weakness - Psychiatric Psychiatric: Reports anxiety - Endocrine Endocrine: Denies fatigue, Denies weight change - Hematologic/Lymphatic Comment: none - Allergic/Immunologic Allergic/Immunologic: Reports as per HPI Past Medical History Additional Past Medical History / Comment(s): IBS History of Any Multi-Drug Resistant Organisms: None Reported Additional Past Surgical History / Comment(s): CYST REMOVAL L WRIST Past Anesthesia/Blood Transfusion Reactions: Motion Sickness Past Psychological History: No Psychological Hx Reported Smoking Status: Never smoker Past Alcohol Use History: Occasional Past Drug Use History: Marijuana Additional Drug Use History / Comment(s): DAILY MARIJUANA Medications and Allergies Home Medications Medication Instructions Recorded Confirmed Type LORazepam [Ativan] 0.5 mg PO DIRECTED PRN 03/15/22 03/15/22 History Meclizine [Antivert] 25 mg PO DIRECTED PRN 03/15/22 03/15/22 History Allergies Allergy/AdvReac Type Severity Reaction Status Date / Time No Known Allergies Allergy Unverified 03/15/22 09:42 Objective - Vital Signs Vital signs: Vital Signs Temp 98.2 F 02/26/24 07:19 Pulse 128 H 02/26/24 07:19 Resp 16 02/26/24 07:19 BP 106/73 02/26/24 07:19 Pulse Ox 99 02/26/24 07:19 FiO2 Intake & Output 02/25/24 02/26/24 02/26/24 18:59 06:59 18:59 Weight 46.72 kg - Constitutional General appearance: Present: cooperative - EENT Eyes: Present: EOMI ENT: Present: hearing grossly normal - Neck Neck: Present: normal ROM - Respiratory Respiratory: bilateral: CTA - Cardiovascular Rhythm: regular Heart sounds: normal: S1, S2 - Integumentary Integumentary: Present: normal turgor - Musculoskeletal Musculoskeletal: Present: gait normal - Psychiatric Psychiatric: Present: A&O x's 3, appropriate affect, intact judgment & insight - Additional findings Additional findings: Breast Examination: BRA: 36C Inspection: Grade 2 ptosis Palpation: Right breast: Multi positional examination scar tissue and radiation changes upper outer quadrant area no other dominant masses or nodules of concern; a fullness near the upper outer quadrant at prior lumpectomy site is to palpation, prior biopsy revealed fat necrosis however this is symptomatic Right axilla: No adenopathy of concern Left breast: Multi-positional exam fibrocystic changes no dominant masses or nodules of concern Left axilla: No adenopathy of concern Assessment and Plan Assessment: Impression: anxiety IBS Right breast invasive ductal carcinoma/status post lumpectomy bilateral mammogram 02-24-24 abnormal lesion in the left breast Nodule clarity right breast upper outer quadrant at lumpectomy site which is symptomatic we tender may have increased slightly in size Plan: stero biopsy of the left breast Continue follow-up with radiation oncology She decided against the hormone therapy and is not following with medical oncology We will resection symptomatic mass right breast after results of stereo biopsy obtained Risk and benefits of stereo biopsy discussed with the patient and her . Risk include but are not limited to bleeding, infection, reaction to the anesthetic. Risks may be an adequate tissue acquisition which would require resection in the operating room where further tissue acquisition. They understand and wish to proceed. Cc: Dr. Monse Rasmussen
== END ==
LOC: WWCWWP 07:06
PROVIDERS: ATTEND Surgery
DX: C50.411 Malignant neoplasm of upper-outer quadrant of right female breast (principal); R92.8 Other abnormal and inconclusive findings on diagnostic imaging of breast; K58.9 Irritable bowel syndrome, unspecified; N63.20 Unspecified lump in the left breast, unspecified quadrant; F41.9 Anxiety disorder, unspecified; Z17.21 Progesterone receptor positive status; Z17.0 Estrogen receptor positive status [ER+]; Z98.890 Other specified postprocedural states

== ENCOUNTER → 2024-02-26 | Day surgery (SDC) | payer MEDICARE ==
[2024-02-26 07:31] VITALS: BP 106/73; PULSE 110; RESP 16; TEMP 98.1
--- NOTE | 2024-03-01 08:31 | MM ---
Findings: Pattern appears stable. There is prior surgery on the upper right breast. There is new focal asymmetry in the outer left breast on the craniocaudal view. Under compression this appears to disperse. Right breast:No suspicious groups of microcalcifications, spiculated or lobular masses, architectural distortion or other secondary signs of malignancy are mammographically apparent. Management: Diagnostic Breast Ultrasound of the left breast. A negative mammogram report should not preclude additional follow up of suspicious palpable abnormalities. Patient should continue monthly self breast exam. A clinical breast exam by your physician is recommended on an annual basis and results should be correlated with mammographic findings. Note on Ginny scores and lifetime risk: 1. A Ginny score greater than 3% is considered moderate risk. If this is the case, consider specialist referral to assess eligibility for a risk reducing agent. 2. If overall lifetime risk for the development of breast cancer is 20% or higher, the patient may qualify for future screening with alternating mammogram and breast MRI. [facility], , 02/28/2024 3:40 PM. Electronically signed and approved by: Zafar Saucedo D.O. Radiologis
== END ==
LOC: RADMAMWWP 07:07
PROVIDERS: ATTEND Surgery
DX: R92.8 Other abnormal and inconclusive findings on diagnostic imaging of breast (principal)